=== PATIENT | male | born 1955 | race Caucasian/White ===

== ENCOUNTER 2022-06-13 06:35 | Emergency (ER) | payer BC, MEDICARE ==
[2022-06-13] MEDS ORDERED: Sodium Chloride 0.9% 1,000 ML IV ONE ×2 (06:57→09:19)
[2022-06-13 07:22] LABS: ANION GAP 9.1 mmol/L (5-15)
[2022-06-13] MEDS ORDERED: Cefepime 2 GM Vial IVPUSH ONE (09:19)
[2022-06-13] MEDS ORDERED: metroNIDAZOLE/Normal Saline 100 ML ONE (09:19)
[2022-06-13] MEDS ORDERED: Cefepime 2 GM Vial ONE (09:19)
[2022-06-13] MEDS ORDERED: metroNIDAZOLE/Normal Saline 500 MG in Premix Bag 1 BAG IV ONE (09:19)
[2022-06-13] MEDS ORDERED: Sodium Chloride 0.9% 1,000 ML ONE (09:21)
[2022-06-13] MEDS ORDERED: HYDROmorphone 1 MG/ML Syringe IVPUSH ONE (09:24)
[2022-06-13] MEDS ORDERED: HYDROmorphone 1 MG/ML Syringe ONE (09:24)
[2022-06-13] MEDS ORDERED: Iopamidol 755 Mg/ML 100 ML Bottle IV ONE (23:04)
[2022-06-13] MEDS ORDERED: Sodium Chloride 0.9% 50 ML IV SCH (23:15)
== END 2022-06-13 09:40 ==
LOC: KA.ED 06:35
DX: K35.32 Acute appendicitis with perforation, localized peritonitis, and gangrene, without abscess (principal); D72.828 Other elevated white blood cell count; R31.9 Hematuria, unspecified; Z79.899 Other long term (current) drug therapy
CPT/HCPCS: 36415; 74177; 80053; 81001; 84550; 85025; 86140; 96361; 96374; 96375; 99284; 99284-25; J0692; J1170; J3490; J7030; Q9967